=== PATIENT | male | born 1990 | race Caucasian/White ===

== ENCOUNTER 2023-10-28 20:16 | Emergency (ER) | payer OTHER ==
[2023-10-28] MEDS: Lidocaine 1% with EPINEPHrine 1:100,000 20 ML MDV INFILT PRN (20:35)
== END 2023-10-28 21:17 | disposition home or self-care (01) ==
LOC: VM.ED 20:16 → SUPCPDRO 20:16 → VM.ED 21:17
DX: S81.812A Laceration without foreign body, left lower leg, initial encounter (principal); F17.210 Nicotine dependence, cigarettes, uncomplicated; W22.8XXA Striking against or struck by other objects, initial encounter
CPT/HCPCS: 12001; 73590-LT; 99283; J3490